=== PATIENT | male | born 1985 | race Caucasian/White ===

== ENCOUNTER 2016-10-08 06:33 | Emergency (ER) | payer BC ==
[2016-10-08 07:19] LABS: microscopic required? NO
[2016-10-08 07:30] LABS: CALCIUM 9.1 mg/dL (8.5-10.1); CARBON DIOXIDE 27.7 mmol/L (21-32); CHLORIDE SERUM 104 mmol/L (98-107); CREATININE SERUM 0.9 mg/dL (0.7-1.3); GFR1 > 60 mL/min; GLUCOSE SERUM 100 mg/dL (74-106); POTASSIUM SERUM 3.8 mmol/L (3.5-5.1); SODIUM SERUM 141 mmol/L (136-145)
[2016-10-08 07:34] LABS: BASOPHIL % 0.5 % (0-2); PLATELET COUNT 253 x10^3mcL (130-400); RED CELL DISTRIBUTION WIDTH 13.7 % (11.5-14.5)
[2016-10-08 08:22] LABS: UA SPECIFIC GRAVITY 1.015 (1.005-1.035); urine erythrocyte NEGATIVE (NEGATIVE)
[2016-10-08 08:40] VITALS: BP 140/90
== END 2016-10-08 08:40 | disposition home or self-care (01) ==
LOC: ED 06:33
PROVIDERS: Emergency Medicine
DX: N23 Unspecified renal colic (principal); G47.30 Sleep apnea, unspecified; Z87.442 Personal history of urinary calculi
CPT/HCPCS: J1885; J7030; Q0092

== ENCOUNTER 2017-01-16 04:29 | Emergency (ER) | payer BC ==
[2017-01-16 05:57] VITALS: BP 148/120
== END 2017-01-16 05:57 | disposition home or self-care (01) ==
LOC: ED 04:29
DX: R41.0 Disorientation, unspecified (principal); R05 Cough; R44.3 Hallucinations, unspecified; F41.9 Anxiety disorder, unspecified; G47.30 Sleep apnea, unspecified; T78.8XXA Other adverse effects, not elsewhere classified, initial encounter; X58.XXXA Exposure to other specified factors, initial encounter

== ENCOUNTER 2017-05-03 06:22 | Emergency (ER) | payer BC ==
[~2017-05-03] VITALS: Ht 185.4 cm; Wt 139.7 kg
[2017-05-03 06:35] VITALS: Ht 185.4 cm; Wt 139.7 kg
[2017-05-03 08:08] VITALS: BP 161/116
== END 2017-05-03 08:22 | disposition home or self-care (01) ==
LOC: ED 06:22
DX: K04.7 Periapical abscess without sinus (principal); E78.00 Pure hypercholesterolemia, unspecified

== ENCOUNTER 2017-05-03 19:10 | Emergency (ER) | payer BC ==
[~2017-05-03] VITALS: Ht 185.4 cm; Wt 139.2 kg
[2017-05-03 19:27] VITALS: BP 162/110; Ht 185.4 cm; Wt 139.2 kg
== END 2017-05-03 20:02 | disposition left against medical advice (07) ==
LOC: ED 19:10
DX: Z53.21 Procedure and treatment not carried out due to patient leaving prior to being seen by health care provider (principal)

== ENCOUNTER 2018-06-25 20:59 | Emergency (ER) | payer BC ==
[~2018-06-25] VITALS: Ht 182.9 cm; Wt 144.2 kg
[2018-06-25 21:03] VITALS: Ht 182.9 cm; Wt 144.2 kg
[2018-06-25 22:38] LABS: BASOPHIL % 0.4 % (0-2); PLATELET COUNT 247 x10^3mcL (130-400); RED CELL DISTRIBUTION WIDTH 13.9 % (11.5-14.5)
[2018-06-25 22:40] LABS: CALCIUM 9.2 mg/dL (8.5-10.1); CARBON DIOXIDE 28.4 mmol/L (21-32); CHLORIDE SERUM 105 mmol/L (98-107); CREATININE SERUM 0.9 mg/dL (0.7-1.3); GFR1 > 60 mL/min; GLUCOSE SERUM 87 mg/dL (74-106); POTASSIUM SERUM 3.9 mmol/L (3.5-5.1); SODIUM SERUM 140 mmol/L (136-145)
[2018-06-25 22:45] LABS: ALBUMIN 3.6 g/dL (3.4-5.0); ALKALINE PHOSPHATASE 88 U/L (46-116); ALT/SGPT 64 U/L (16-63); AST/SGOT 26 U/L (15-37); BILIRUBIN TOTAL 0.22 mg/dL (0.20-1.00); TOTAL PROTEIN, SERUM 8.2 g/dL (6.4-8.2)
[2018-06-25 22:57] VITALS: BP 149/85
== END 2018-06-25 23:13 | disposition home or self-care (01) ==
LOC: ED 20:59
PROVIDERS: Emergency Medicine
DX: F41.9 Anxiety disorder, unspecified (principal); R07.89 Other chest pain; I10 Essential (primary) hypertension; E78.00 Pure hypercholesterolemia, unspecified; Z87.442 Personal history of urinary calculi
CPT/HCPCS: 36415; Q0092

== ENCOUNTER 2018-07-10 13:13 | Emergency (ER) | payer BC ==
[~2018-07-10] VITALS: Ht 182.9 cm; Wt 143.8 kg
[2018-07-10 13:23] VITALS: Ht 182.9 cm; Wt 143.8 kg
[2018-07-10 13:57] VITALS: BP 146/81
== END 2018-07-10 13:57 | disposition home or self-care (01) ==
LOC: ED 13:13
DX: R10.9 Unspecified abdominal pain (principal); F41.9 Anxiety disorder, unspecified; E78.00 Pure hypercholesterolemia, unspecified; Z87.442 Personal history of urinary calculi

== ENCOUNTER 2018-07-20 10:25 | Emergency (ER) | payer BC ==
[~2018-07-20] VITALS: Ht 185.4 cm; Wt 142.9 kg
[2018-07-20 10:31] VITALS: Ht 185.4 cm; Wt 142.9 kg
[2018-07-20 12:58] LABS: BASOPHIL % 0.3 % (0-2); PLATELET COUNT 236 x10^3mcL (130-400); RED CELL DISTRIBUTION WIDTH 13.6 % (11.5-14.5)
[2018-07-20 13:10] LABS: CARBON DIOXIDE 26.1 mmol/L (21-32); CHLORIDE SERUM 102 mmol/L (98-107); GFR1 > 60 mL/min; GLUCOSE SERUM 102 mg/dL (74-106); POTASSIUM SERUM 3.8 mmol/L (3.5-5.1); SODIUM SERUM 138 mmol/L (136-145)
[2018-07-20 13:15] LABS: ALBUMIN 3.9 g/dL (3.4-5.0); ALKALINE PHOSPHATASE 92 U/L (46-116); ALT/SGPT 58 U/L (16-63); AST/SGOT 27 U/L (15-37); BILIRUBIN TOTAL 0.6 mg/dL (0.20-1.00); TOTAL PROTEIN, SERUM 8.2 g/dL (6.4-8.2); URIC ACID 6.4 mg/dL (3.5-7.2)
[2018-07-20 14:29] VITALS: BP 127/51
== END 2018-07-20 14:29 | disposition home or self-care (01) ==
LOC: ED 10:25
PROVIDERS: Emergency Medicine
DX: M54.9 Dorsalgia, unspecified (principal); R10.9 Unspecified abdominal pain; I10 Essential (primary) hypertension; F41.9 Anxiety disorder, unspecified; E78.00 Pure hypercholesterolemia, unspecified; Z87.442 Personal history of urinary calculi
CPT/HCPCS: J1885; J2405; J7030

== ENCOUNTER 2019-04-14 09:57 | Emergency (ER) | payer BC ==
[~2019-04-14] VITALS: Ht 182.9 cm; Wt 143.3 kg
[2019-04-14 11:09] VITALS: Ht 182.9 cm; Wt 143.3 kg
[2019-04-14 12:05] LABS: BASOPHIL % 0.4 % (0-2); PLATELET COUNT 228 x10^3mcL (130-400); RED CELL DISTRIBUTION WIDTH 13.4 % (11.5-14.5)
[2019-04-14 12:16] LABS: CALCIUM 8.9 mg/dL (8.5-10.1); CARBON DIOXIDE 18.7 mmol/L (21-32); CHLORIDE SERUM 104 mmol/L (98-107); CREATININE SERUM 1.1 mg/dL (0.7-1.3); GFR1 > 60 mL/min; GLUCOSE SERUM 121 mg/dL (74-106); POTASSIUM SERUM 3.7 mmol/L (3.5-5.1); SODIUM SERUM 138 mmol/L (136-145)
[2019-04-14 12:21] LABS: ALBUMIN 3.9 g/dL (3.4-5.0); ALKALINE PHOSPHATASE 85 U/L (46-116); ALT/SGPT 73 U/L (16-63); AST/SGOT 26 U/L (15-37); TOTAL PROTEIN, SERUM 8.2 g/dL (6.4-8.2)
[2019-04-14 12:56] VITALS: BP 140/79
== END 2019-04-14 12:56 | disposition home or self-care (01) ==
LOC: ED 09:57
PROVIDERS: Emergency Medicine
DX: N23 Unspecified renal colic (principal); I10 Essential (primary) hypertension; F32.9 Major depressive disorder, single episode, unspecified; F41.9 Anxiety disorder, unspecified; E78.00 Pure hypercholesterolemia, unspecified; Z87.442 Personal history of urinary calculi
CPT/HCPCS: J1885; J2405; J3010

== ENCOUNTER 2019-06-29 05:56 | Emergency (ER) | payer BC ==
[~2019-06-29] VITALS: Ht 182.9 cm; Wt 147.9 kg
[2019-06-29 06:03] VITALS: Ht 182.9 cm; Wt 147.9 kg
[2019-06-29 08:34] VITALS: BP 123/71
== END 2019-06-29 08:34 | disposition home or self-care (01) ==
LOC: ED 05:56
DX: M54.41 Lumbago with sciatica, right side (principal); M51.26 Other intervertebral disc displacement, lumbar region; E66.01 Morbid (severe) obesity due to excess calories; I10 Essential (primary) hypertension; E78.00 Pure hypercholesterolemia, unspecified

== ENCOUNTER 2020-03-29 10:22 | Emergency (ER) | payer BC ==
[~2020-03-29] VITALS: Ht 182.9 cm; Wt 154.2 kg
[2020-03-29 10:28] VITALS: Ht 182.9 cm; Wt 154.2 kg
[2020-03-29 11:24] LABS: BASOPHIL % 0.8 % (0-2); PLATELET COUNT 154 x10^3mcL (130-400); RED CELL DISTRIBUTION WIDTH 13.5 % (11.5-14.5)
[2020-03-29 11:44] LABS: CALCIUM 8.9 mg/dL (8.5-10.1); CARBON DIOXIDE 24.4 mmol/L (21-32); CHLORIDE SERUM 101 mmol/L (98-107); CREATININE SERUM 1.1 mg/dL (0.7-1.3); GFR1 > 60 mL/min; GLUCOSE SERUM 119 mg/dL (74-106); POTASSIUM SERUM 3.5 mmol/L (3.5-5.1); SODIUM SERUM 138 mmol/L (136-145)
[2020-03-29 11:48] LABS: ALBUMIN 3.9 g/dL (3.4-5.0); ALKALINE PHOSPHATASE 88 U/L (46-116); ALT/SGPT 107 U/L (16-63); AST/SGOT 51 U/L (15-37); C REACTIVE PROTEIN 3.6 mg/dL (<=0.9); LACTIC DEHYDROGENASE (LDH) 195 U/L (100-190)
[2020-03-29 11:51] LABS: TOTAL PROTEIN, SERUM 8.6 g/dL (6.4-8.2)
[2020-03-29 12:59] LABS: microscopic required? NO
[2020-03-29 13:07] VITALS: BP 140/82
[2020-03-29 13:29] LABS: urine erythrocyte NEGATIVE (NEGATIVE)
== END 2020-03-29 13:07 | disposition home or self-care (01) ==
LOC: ED 10:22
PROVIDERS: Emergency Medicine
DX: U07.1 COVID-19 (principal); J12.89 Other viral pneumonia; F41.9 Anxiety disorder, unspecified; I10 Essential (primary) hypertension; E78.00 Pure hypercholesterolemia, unspecified
CPT/HCPCS: 83880; 85378; 87804